=== PATIENT | male | born 1960 | race Caucasian/White ===

== ENCOUNTER 2018-08-04 13:25 | Emergency (ER) | payer OTHER ==
[~2018-08-04] VITALS: Ht 170.2 cm; Wt 68.0 kg
[2018-08-04] MEDS ORDERED: PRILOSEC10 MG PO (13:42)
[2018-08-04] MEDS ORDERED: KRILL OIL500 MG PO (13:42)
[2018-08-04] MEDS ORDERED: CENTRUM SILVER1 EAC2 PO (13:43)
[2018-08-04] MEDS ORDERED: NORCO 5-325 TA1 EAC1 PO (14:03)
[2018-08-04] MEDS ORDERED: AUGMENTIN 875-1 EACH PO (14:03)
[2018-08-04 14:13] VITALS: BP 145/98
== END 2018-08-04 14:13 | disposition home or self-care (01) ==
LOC: M.ERS 13:25
DX: S61.216A Laceration without foreign body of right little finger without damage to nail, initial encounter (principal); Z88.6 Allergy status to analgesic agent; W54.0XXA Bitten by dog, initial encounter; Y93.89 Activity, other specified; Y92.89 Other specified places as the place of occurrence of the external cause; Y99.8 Other external cause status